=== PATIENT | male | born 1945 | race African-American/Black ===

== ENCOUNTER → 2017-12-25 | Outpatient (CLI) | payer BC | END | disposition home or self-care (01) | LOC: KCIC US 12:07 | DX: Z13.83 Encounter for screening for respiratory disorder NEC (principal); I70.0 Atherosclerosis of aorta; Z72.0 Tobacco use | CPT/HCPCS: 93978 ==

== ENCOUNTER → 2019-03-29 | Outpatient (CLI) | payer BC ==
--- NOTE | 2019-03-29 11:21 | KCIC ---
PQRS Compliance statement: One or more of the following individualized dose reduction techniques were utilized for this examination: 1. Automated exposure control. 2. Adjustment of the mA and/or kV according to patient size. 3. Use of iterative reconstruction technique. Indication:Smoker 40 years. Lung cancer screening. TECHNIQUE: CT chest without IV contrast with multiplanar reformats. COMPARISON:None FINDINGS: Heart is normal in size. No pericardial or pleural effusion. Coronary artery calcifications noted. Bilateral thyroid lobes are enlarged. No enlarged axillary lymph nodes. Enlarged mediastinal lymph nodes are seen, the largest measuring 1.7 x 1.6 cm erosion of hilar lymphadenopathy is limited due to lack of IV contrast. Central airways are patent. 4 mm nodular opacity seen in the medial aspect of the right upper lobe adjacent to the mediastinal margin (series 6 image 99). Bibasilar scarring is seen. Simple cyst in segment 4A of the liver. Otherwise, visualized noncontrast sections through the liver, spleen, pancreas, adrenals within normal limits. No suspicious bony lesion. IMPRESSION: 1. Right upper lobe pericardial nodular opacity, nonspecific. Lung RADS category 3: Probably benign. Follow-up low-dose CT chest in 6 months recommended. 2. Mediastinal adenopathy likely reactive. Attention on follow-up. Electronically signed by: Chris Gutierrez DO (03/29/2019 11:19 AM) [facility]
== END | disposition home or self-care (01) ==
LOC: KCIC CT 10:46
PROVIDERS: ATTEND Family Medicine
DX: Z12.2 Encounter for screening for malignant neoplasm of respiratory organs (principal); J98.4 Other disorders of lung; R59.0 Localized enlarged lymph nodes; K76.89 Other specified diseases of liver; I25.10 Atherosclerotic heart disease of native coronary artery without angina pectoris; E04.9 Nontoxic goiter, unspecified; Z87.891 Personal history of nicotine dependence
CPT/HCPCS: G0297

== ENCOUNTER → 2020-08-23 | Outpatient (CLI) | payer MEDICARE ==
--- NOTE | 2020-08-23 16:19 | KCIC ---
EXAMINATION: Magnetic resonance imaging (MRI) of the brain and brainstem without contrast 08/23/2020 3 :20 PM HISTORY: Ataxia. Right leg and arm weakness TECHNIQUE: Multiplanar multi-weighted MRI of the brain and brainstem was performed without intravenou s contrast using the general brain protocol. COMPARISON: None available. FINDINGS: Evaluation limited by motion artifact. There is no diffusion signal hyperintensity to suggest acute or chronic ischemia. There is a T1 hyper intense, T2 isointense to loco matter extra-axial collection along the left parietal convexity measur ing maximally 3.7 cm resulting in mass effect and sulcal effacement on the left parietal, posterior f rontal and temporal lobes. There is midline shift to the right by approximately 5-6 mm. There is part ial effacement of the left lateral ventricle. There is effacement of the occipital horn of left later al ventricle. No trapping of the left lateral ventricle temporal horn. No hydrocephalus. Mild general ized cerebral volume loss. There is no intracranial mass. Sella and suprasellar cistern appear normal. Skull base is intact. Orb its are normal in appearance. Paranasal sinuses are well aerated. Mastoid air cells are well aerated. IMPRESSION: No evidence for acute or subacute ischemia. Left parietal convexity subdural hematoma measures 3.7 cm in maximal thickness with associated mass e ffect and sulcal effacement. There is midline shift to the right by approximately 5-6 mm. Critical results were discussed with Dr. Simpson at 4:15 PM on 08/23/2020. Patient was instructed to go to the emergency department for further evaluation. Electronically signed by: Laurence Peter MD (08/23/2020 4:16 PM) [id number]
--- NOTE | 2020-08-24 09:12 | KCIC ---
PQRS Compliance Statement: One or more of the following individualized dose reduction techniques were utilized for this examinat ion: 1. Automated exposure control 2. Adjustment of the mA and/or kV according to patient size 3. Use of iterative reconstruction technique CT THORAX WO 08/23/2020 2:41 PM Indication: Mediastinal adenopathy. Past smoker COMPARISON: CT CT chest 03/29/2019 TECHNIQUE: Multiple axial CT images of the chest were obtained with intravenous contrast. Coronal and sagittal reformats are provided. FINDINGS: There is mild centrilobular pulmonary emphysema. There is subsegmental atelectasis or scarring the in ferior lingula. No suspicious solid noncalcified pulmonary nodules. No pleural effusions, pulmonary v ascular congestion or pneumothorax. No suspicious thyroid mass is identified. Stable precarinal lymph node measuring 13 mm (series 2, laura ge 27) calcified right hilar lymph node is identified. AP window lymph node measures 9 mm, stable. No new or enlarging thoracic lymph nodes. Heart size within normal limits. Thoracic aorta is normal in course and caliber. Three-vessel coronary artery vascular calcifications are present. Calcifications within the liver and spleen likely represent sequela prior granulomatous exposure. In the medial segm ent left hepatic lobe there is a circumscribed hypoattenuating lesion with fluid attenuation suggesti ve of a simple cyst. No suspicious osseous abnormality is identified. IMPRESSION: Stable borderline enlarged mediastinal lymph nodes with precarinal lymph node measuring up to 1.3 cm. Findings most favor reactive changes stability since the prior examination. Electronically signed by: Laurence Peter MD (08/24/2020 9:10 AM) [id number]
== END ==
LOC: KCIC CT 14:22
PROVIDERS: ATTEND Family Medicine
DX: J43.2 Centrilobular emphysema (principal); R91.1 Solitary pulmonary nodule; Z87.891 Personal history of nicotine dependence
CPT/HCPCS: 70551; 71250

== ENCOUNTER → 2020-09-08 | Outpatient (CLI) | payer MEDICARE ==
--- NOTE | 2020-09-08 15:41 | RAD ---
EXAM: Carotid Doppler sonogram. HISTORY: Atherosclerosis. TECHNIQUE: Jorgensen scale and color Doppler sonographic evaluation of the neck with spectral waveform jacqueline lysis was performed and static images are submitted for review. FINDINGS: The exam is limited due to high carotid bifurcations. The peak systolic velocity within the right common carotid artery is 120 cm/sec. The peak systolic ve locity within the right internal carotid artery is 88 cm/sec and the end diastolic velocity within th e right internal carotid artery is 37 cm/sec. The right ICA/CCA ratio is 0.8. The peak systolic velocity within the left common carotid artery is 77 cm/sec. The peak systolic [place] within the left internal carotid artery is 95 cm/sec and the end diastolic velocity within the l eft internal carotid artery is 46 cm/sec. The left ICA/CCA ratio is 1.2. There is normal antegrade flow within the left vertebral artery artery. The right vertebral artery is not seen. IMPRESSION: 1. No elevated peak systolic velocity to suggest greater than 50 percent stenosis involving the inter nal carotid arteries. 2. Nonvisualization of the right vertebral artery. This may be due to hypoplasia or imaging technique . CT angiography or MR angiography of the neck and informed there is concern for vertebral occlusion. PQRS Compliance Statement - Stenosis calculations for CT, MR and conventional angiography are based u kenny measurement of the distal ICA diameter in accordance with the NASCET methodology. Stenosis calcu lations for carotid ultrasound studies are derived from validated velocity criteria which are known t o correlate with the NASCET methodology. Electronically signed by: Tita Ji MD (09/08/2020 3:38 PM) [id number]
== END ==
LOC: US 13:22
PROVIDERS: ATTEND Family Medicine
DX: R27.0 Ataxia, unspecified (principal); Z86.79 Personal history of other diseases of the circulatory system
CPT/HCPCS: 93880